=== PATIENT | male | born 1945 | race Caucasian/White ===

== ENCOUNTER 2021-07-30 17:50 | Inpatient (IN) | payer OTHER, BC ==
[2021-07-30 18:32] VITALS: BMI 25.7
[2021-07-30] MEDS ORDERED: SODIUM CHLORIDE 2,041 ML IV ONE (18:37)
[2021-07-30] MEDS ORDERED: LACTATED RINGERS SOLUTION 1000 ML INFUS.BAG IV ONE (19:36)
[2021-07-30 19:49] LABS: INR 1.24 (0.83-1.09); PROTHROMBIN TIME (PATIENT) 14.3 SEC (9.7-13.0)
[2021-07-30 19:51] LABS: ACTIVATED PTT 25.3 SECONDS (25.2-36.5)
[2021-07-30 20:02] LABS: ALBUMIN 2.9 g/dl (3.4-5.0); BLOOD UREA NITROGEN 18.1 mg/dL (7-18); CALCIUM 8.5 mg/dL (8.5-10.1)
[2021-07-30 20:04] LABS: VENOUS BASE EXCESS -1.7 mmol/L (-2-2); VENOUS O2 SATURATION 68.3 % (70-80); VENOUS PCO2 36.3 mmHg (38-52); VENOUS PH 7.409 (7.310-7.410)
[2021-07-30 20:06] LABS: CREATININE 1.6 mg/dL (0.55-1.3)
[2021-07-30 20:07] LABS: BILIRUBIN,TOTAL 0.8 mg/dL (0.2-1)
[2021-07-30 20:59] LABS: HEMATOCRIT 30.8 % (35.4-49); HEMOGLOBIN 9.6 GM/dL (11.7-16.9); MCHC 31.3 g/dl (32.0-35.9); MEAN CELL VOLUME 89.5 fl (80-96); MEAN PLT VOLUME 7.8 fl (7.5-11.1); PLATELET COUNT 211 10^3/uL (134-434); RBC 3.44 M/mm3 (4.00-5.60); RDW 14.7 % (11.9-15.9)
[2021-07-30 21:05] LABS: WHITE BLOOD COUNT 33.6 K/mm3 (4.0-10.0)
[2021-07-30 21:59] LABS: ANISOCYTOSIS 0; MACROCYTOSIS 1+; OVALOCYTE 1+
[2021-07-30] MEDS ORDERED: AZITHROMYCIN IVPB 500 MG in DEXTROSE 5%-WATER - 250 ML IVPB ONE (23:07)
[2021-07-30] MEDS ORDERED: CEFTRIAXONE 1,000 MG in DEXTROSE 5%-WATER - 50 ML IVPB ONE (23:07)
[2021-07-30] MEDS ORDERED: AZITHROMYCIN IVPB 500 MG/250 ML BAG IVPB ONE (23:54)
[2021-07-30] MEDS ORDERED: CEFTRIAXONE 1 GM/50 ML BAG ONE (23:54)
[2021-07-31 00:24] LABS: EPI CELLS 1 /uL (0-25.1); HYALINE CASTS 17 /uL (0-3.1); URINE APPEARANCE CLOUDY; URINE BACTERIA >9,000 /uL (0-1359); URINE BILIRUBIN NEGATIVE (NEGATIVE); URINE COLOR DK YELLOW; URINE GLUCOSE (UA) NEGATIVE (NEGATIVE); URINE KETONE TRACE (NEGATIVE); URINE LEUK ESTERASE 3+ (NEGATIVE); URINE NITRITE NEGATIVE (NEGATIVE); URINE PROTEIN TRACE (NEGATIVE); URINE RBC 10 /uL (0-23.9); URINE UROBILINOGEN 0.2 mg/dL (0.2-1.0); URINE WBC 518 /uL (0-25.8)
[2021-07-31] MEDS ORDERED: diphenhydrAMINE HCL 25 MG CAPSULE (FP) PO ONE ×2 (00:52→00:56)
[2021-07-31] MEDS ORDERED: ACETAMINOPHEN 325 MG TABLET (FP) PO PRN (01:01)
[2021-07-31] MEDS ORDERED: RANITIDINE HCL 150 MG/10 ML UNIT-DOSE PO SCH (01:15)
[2021-07-31] MEDS: FAMOTIDINE 20 MG TABLET PO SCH ×3 (03:43→22:51)
[2021-07-31] MEDS: HEPARIN NA (PORCINE) 5,000 UNITS/ML 1ML VIAL SQ SCH ×3 (06:11→22:58)
[2021-07-31 08:21] LABS: HEMATOCRIT 38.1 % (35.4-49); HEMOGLOBIN 12.1 GM/dL (11.7-16.9); MCH 28.1 pg (25.7-33.7); MCHC 31.8 g/dl (32.0-35.9); MEAN CELL VOLUME 88.4 fl (80-96); MEAN PLT VOLUME 8.2 fl (7.5-11.1); PLATELET COUNT 263 10^3/uL (134-434); RBC 4.31 M/mm3 (4.00-5.60); RDW 15.4 % (11.9-15.9); RETICULOCYTES 2.13 % (0.5-1.5)
[2021-07-31 08:31] LABS: WHITE BLOOD COUNT 35.7 K/mm3 (4.0-10.0)
[2021-07-31 08:59] LABS: MAGNESIUM 1.8 mg/dL (1.8-2.4)
[2021-07-31 09:00] LABS: ALBUMIN 2.7 g/dl (3.4-5.0); BLOOD UREA NITROGEN 15.9 mg/dL (7-18); CALCIUM 8.5 mg/dL (8.5-10.1)
[2021-07-31 09:02] LABS: CREATININE 1.4 mg/dL (0.55-1.3)
[2021-07-31 09:04] LABS: PHOSPHOROUS 3.2 mg/dL (2.5-4.9)
[2021-07-31 09:05] LABS: BILIRUBIN,TOTAL 0.5 mg/dL (0.2-1); TOT PROT 5.7 g/dl (6.4-8.2)
[2021-07-31] MEDS ORDERED: ENOXAPARIN NA (PORCINE) 40 MG/0.4 ML DISP.SYRIN SQ SCH (10:00)
[2021-07-31] MEDS ORDERED: cefTRIAXone SODIUM 1 GM VIAL ONE (10:43)
[2021-07-31] MEDS ORDERED: DEXTROSE 5%-WATER - 50 ML IVPB ONE (10:43)
[2021-07-31] MEDS: CEFTRIAXONE 1 GM in DEXTROSE 5%-WATER - 50 ML IVPB SCH (10:50)
[2021-07-31] MEDS: AZITHROMYCIN IVPB 500 MG/250 ML BAG IVPB SCH (10:51)
[2021-07-31 16:46] LABS: HIV INTERPRETATION NEGATIVE (NEGATIVE)
[2021-07-31] MEDS ORDERED: diphenhydrAMINE HCL 25 MG CAPSULE (FP) PO PRN (18:17)
[2021-07-31] MEDS ORDERED: HYDROCORTISONE 0.5% TOPICAL OINTMENT TUBE TP SCH (22:00)
[2021-07-31] MEDS: HYDROCORTISONE 0.5% TOPICAL CREAM 30 GM TUBE TP SCH (22:51)
[2021-07-31] MEDS: MELATONIN 1 MG TABLET PO SCH (22:51)
[2021-08-01] MEDS: HEPARIN NA (PORCINE) 5,000 UNITS/ML 1ML VIAL SQ SCH ×4 (06:24→22:00)
[2021-08-01 07:38] LABS: HEMATOCRIT 38.8 % (35.4-49); HEMOGLOBIN 12.7 GM/dL (11.7-16.9); MCH 28.7 pg (25.7-33.7); MCHC 32.8 g/dl (32.0-35.9); MEAN CELL VOLUME 87.4 fl (80-96); MEAN PLT VOLUME 8.2 fl (7.5-11.1); PLATELET COUNT 236 10^3/uL (134-434); RBC 4.44 M/mm3 (4.00-5.60); RDW 15.2 % (11.9-15.9)
[2021-08-01 08:04] LABS: CALCIUM 7.9 mg/dL (8.5-10.1)
[2021-08-01 08:05] LABS: ALBUMIN 2.6 g/dl (3.4-5.0); MAGNESIUM 1.8 mg/dL (1.8-2.4)
[2021-08-01 08:08] LABS: CREATININE 1.4 mg/dL (0.55-1.3)
[2021-08-01 08:09] LABS: BILIRUBIN,TOTAL 0.6 mg/dL (0.2-1); TOT PROT 5.4 g/dl (6.4-8.2)
[2021-08-01 08:54] LABS: WHITE BLOOD COUNT 33.5 K/mm3 (4.0-10.0)
[2021-08-01 09:49] LABS: ANISOCYTOSIS 0; MACROCYTOSIS 0; PLATELET ESTIMATE NORMAL
[2021-08-01] MEDS ORDERED: cefTRIAXone SODIUM 1 GM VIAL ONE (10:14)
[2021-08-01] MEDS ORDERED: DEXTROSE 5%-WATER - 50 ML IVPB ONE (10:14)
[2021-08-01] MEDS: CEFTRIAXONE 1 GM in DEXTROSE 5%-WATER - 50 ML IVPB SCH (10:24)
[2021-08-01] MEDS: AZITHROMYCIN IVPB 500 MG/250 ML BAG IVPB SCH (10:24)
[2021-08-01] MEDS: FAMOTIDINE 20 MG TABLET PO SCH ×2 (10:24→21:45)
[2021-08-01] MEDS: HYDROCORTISONE 0.5% TOPICAL CREAM 30 GM TUBE TP SCH ×2 (10:25→21:45)
[2021-08-01] MEDS: MELATONIN 1 MG TABLET PO SCH (21:45)
[2021-08-02] MEDS: HEPARIN NA (PORCINE) 5,000 UNITS/ML 1ML VIAL SQ SCH ×3 (06:00→21:47)
[2021-08-02 07:20] LABS: HEMATOCRIT 37.4 % (35.4-49); HEMOGLOBIN 12.4 GM/dL (11.7-16.9); MCH 28.9 pg (25.7-33.7); MCHC 33.1 g/dl (32.0-35.9); MEAN CELL VOLUME 87.3 fl (80-96); MEAN PLT VOLUME 8.2 fl (7.5-11.1); PLATELET COUNT 214 10^3/uL (134-434); RBC 4.28 M/mm3 (4.00-5.60); RDW 14.8 % (11.9-15.9)
[2021-08-02 07:35] LABS: URIC ACID 6.9 mg/dL (2.6-7.2); WHITE BLOOD COUNT 33.9 K/mm3 (4.0-10.0)
[2021-08-02] MEDS ORDERED: cefTRIAXone SODIUM 1 GM VIAL ONE (09:54)
[2021-08-02] MEDS ORDERED: DEXTROSE 5%-WATER - 50 ML IVPB ONE (09:54)
[2021-08-02] MEDS: FAMOTIDINE 20 MG TABLET PO SCH ×3 (10:08→22:00)
[2021-08-02] MEDS: CEFTRIAXONE 1 GM in DEXTROSE 5%-WATER - 50 ML IVPB SCH (10:08)
[2021-08-02] MEDS: AZITHROMYCIN IVPB 500 MG/250 ML BAG IVPB SCH (10:09)
[2021-08-02] MEDS: HYDROCORTISONE 0.5% TOPICAL CREAM 30 GM TUBE TP SCH ×2 (10:09→21:49)
[2021-08-02 10:21] LABS: ANISOCYTOSIS 0; HELMET CELLS 0; HOWELL-JOLLY BODIES 0; MACROCYTOSIS 0; OVALOCYTE 0; ROULEAU 0; SICKELED CELLS 0; TARGET CELLS 0; TEAR DROP CELLS 0; TOXIC GRANULATION 0
[2021-08-02 11:13] LABS: ALBUMIN 2.4 g/dl (3.4-5.0)
[2021-08-02 11:14] LABS: BLOOD UREA NITROGEN 18.7 mg/dL (7-18); CALCIUM 8.3 mg/dL (8.5-10.1)
[2021-08-02 11:15] LABS: MAGNESIUM 1.9 mg/dL (1.8-2.4)
[2021-08-02 11:16] LABS: CREATININE 1.5 mg/dL (0.55-1.3)
[2021-08-02 11:17] LABS: BILIRUBIN,TOTAL 0.4 mg/dL (0.2-1)
[2021-08-02] MEDS: MELATONIN 1 MG TABLET PO SCH (21:49)
[2021-08-03] MEDS: HEPARIN NA (PORCINE) 5,000 UNITS/ML 1ML VIAL SQ SCH ×3 (06:20→23:28)
[2021-08-03 07:50] LABS: HEMATOCRIT 36.9 % (35.4-49); HEMOGLOBIN 12.5 GM/dL (11.7-16.9); MCH 29.1 pg (25.7-33.7); MCHC 33.8 g/dl (32.0-35.9); MEAN CELL VOLUME 86.2 fl (80-96); MEAN PLT VOLUME 8.4 fl (7.5-11.1); PLATELET COUNT 216 10^3/uL (134-434); RBC 4.28 M/mm3 (4.00-5.60); RDW 15.1 % (11.9-15.9)
[2021-08-03 07:52] LABS: WHITE BLOOD COUNT 33.6 K/mm3 (4.0-10.0)
[2021-08-03 08:12] LABS: CALCIUM 8.1 mg/dL (8.5-10.1)
[2021-08-03 08:13] LABS: ALBUMIN 2.4 g/dl (3.4-5.0); MAGNESIUM 1.8 mg/dL (1.8-2.4)
[2021-08-03 08:16] LABS: CREATININE 1.4 mg/dL (0.55-1.3)
[2021-08-03 08:17] LABS: BILIRUBIN,TOTAL 0.5 mg/dL (0.2-1); TOT PROT 5.2 g/dl (6.4-8.2)
[2021-08-03 08:47] LABS: ANISOCYTOSIS 0; HELMET CELLS 0; HOWELL-JOLLY BODIES 0; MACROCYTOSIS 0; OVALOCYTE 0; ROULEAU 0; SICKELED CELLS 0; TARGET CELLS 0; TEAR DROP CELLS 0; TOXIC GRANULATION 0
[2021-08-03] MEDS ORDERED: DEXTROSE 5%-WATER - 50 ML IVPB ONE (09:08)
[2021-08-03] MEDS ORDERED: cefTRIAXone SODIUM 1 GM VIAL ONE (09:08)
[2021-08-03] MEDS: CEFTRIAXONE 1 GM in DEXTROSE 5%-WATER - 50 ML IVPB SCH (10:12)
[2021-08-03] MEDS: HYDROCORTISONE 0.5% TOPICAL CREAM 30 GM TUBE TP SCH ×2 (10:12→23:27)
[2021-08-03] MEDS: FAMOTIDINE 20 MG TABLET PO SCH ×2 (10:14→23:28)
[2021-08-03] MEDS: AZITHROMYCIN IVPB 500 MG/250 ML BAG IVPB SCH (10:15)
[2021-08-03] MEDS: MELATONIN 1 MG TABLET PO SCH (23:20)
[2021-08-04] MEDS: HEPARIN NA (PORCINE) 5,000 UNITS/ML 1ML VIAL SQ SCH ×3 (05:54→22:09)
[2021-08-04 07:38] LABS: INR 1.3 (0.83-1.09)
[2021-08-04 07:40] LABS: HEMATOCRIT 37.9 % (35.4-49); HEMOGLOBIN 12.3 GM/dL (11.7-16.9); MCH 28.3 pg (25.7-33.7); MCHC 32.4 g/dl (32.0-35.9); MEAN CELL VOLUME 87.1 fl (80-96); MEAN PLT VOLUME 8.9 fl (7.5-11.1); PLATELET COUNT 214 10^3/uL (134-434); RBC 4.35 M/mm3 (4.00-5.60); RDW 15.3 % (11.9-15.9)
[2021-08-04 08:03] LABS: ALBUMIN 2.4 g/dl (3.4-5.0); BLOOD UREA NITROGEN 19.1 mg/dL (7-18); CALCIUM 8.4 mg/dL (8.5-10.1); MAGNESIUM 1.9 mg/dL (1.8-2.4)
[2021-08-04 08:05] LABS: CREATININE 1.4 mg/dL (0.55-1.3)
[2021-08-04 08:06] LABS: TOT PROT 5.2 g/dl (6.4-8.2)
[2021-08-04 08:07] LABS: BILIRUBIN,TOTAL 0.6 mg/dL (0.2-1)
[2021-08-04 08:26] LABS: WHITE BLOOD COUNT 39.2 K/mm3 (4.0-10.0)
[2021-08-04] MEDS: AZITHROMYCIN IVPB 500 MG/250 ML BAG IVPB SCH (08:50)
[2021-08-04] MEDS ORDERED: DEXTROSE 5%-WATER - 50 ML IVPB ONE (08:57)
[2021-08-04] MEDS ORDERED: cefTRIAXone SODIUM 1 GM VIAL ONE (08:57)
[2021-08-04] MEDS: CEFTRIAXONE 1 GM in DEXTROSE 5%-WATER - 50 ML IVPB SCH (08:58)
[2021-08-04 09:39] LABS: ANISOCYTOSIS 0; HELMET CELLS 0; HOWELL-JOLLY BODIES 0; MACROCYTOSIS 0; OVALOCYTE 0; ROULEAU 0; SICKELED CELLS 0; TARGET CELLS 0; TEAR DROP CELLS 0; TOXIC GRANULATION 0
[2021-08-04] MEDS ORDERED: LIDOCAINE HCL 1%, 10 MG/ML (20ML VIAL) NR ONE ×3 (09:54→10:30)
[2021-08-04] MEDS ORDERED: BUPIVACAINE HCL/PF 0.5% (5MG/ML) 10 ML VIAL IJ ONE ×3 (09:55→10:30)
[2021-08-04] MEDS ORDERED: MIDAZOLAM HCL 2 MG/2 ML SINGLE DOSE VIAL ONE (10:16)
[2021-08-04] MEDS ORDERED: ONDANSETRON 4 MG/2 ML VIAL IVPUSH PRN (11:15)
[2021-08-04] MEDS ORDERED: SODIUM CHLORIDE 1,000 ML IV SCH (11:15)
[2021-08-04] MEDS ORDERED: ACETAMINOPHEN 1000 MG/100 ML BAG IVPB PRN (11:16)
[2021-08-04] MEDS ORDERED: ACETAMINOPHEN INJECTION 100 ML IVPB ONE (11:27)
[2021-08-04] MEDS ORDERED: ACETAMINOPHEN 1000 MG/100 ML BAG IVPB ONE (11:29)
[2021-08-04] MEDS ORDERED: ACETAMINOPHEN 325 MG TABLET (FP) PO PRN (11:48)
[2021-08-04] MEDS: FAMOTIDINE 20 MG TABLET PO SCH (13:04)
[2021-08-04 14:08] LABS: MYCOPLASMA PNEUMONIAE,IG G AB <100 U/mL (0-99); MYCOPLASMA PNEUMONIAE,IGM AB <770 U/mL (0-769)
[2021-08-04 16:08] LABS: ATYPICAL pANCA <1:20 titer (Neg:<1:20); C-ANCA <1:20 titer (Neg:<1:20)
[2021-08-04 18:07] LABS: FREE KAPPA,SERUM 81.8 mg/L (3.3-19.4)
[2021-08-04] MEDS ORDERED: FAMOTIDINE 20 MG TABLET PO SCH (22:00)
[2021-08-04] MEDS: HYDROCORTISONE 0.5% TOPICAL CREAM 30 GM TUBE TP SCH (22:09)
[2021-08-04] MEDS: MELATONIN 1 MG TABLET PO SCH (22:12)
[2021-08-05] MEDS: HEPARIN NA (PORCINE) 5,000 UNITS/ML 1ML VIAL SQ SCH ×3 (06:00→21:40)
[2021-08-05 07:19] LABS: HEMATOCRIT 35.8 % (35.4-49); HEMOGLOBIN 11.3 GM/dL (11.7-16.9); MCH 27.7 pg (25.7-33.7); MCHC 31.6 g/dl (32.0-35.9); MEAN CELL VOLUME 87.7 fl (80-96); MEAN PLT VOLUME 8.7 fl (7.5-11.1); PLATELET COUNT 195 10^3/uL (134-434); RBC 4.08 M/mm3 (4.00-5.60)
[2021-08-05 07:37] LABS: CALCIUM 8.1 mg/dL (8.5-10.1)
[2021-08-05 07:38] LABS: BLOOD UREA NITROGEN 20.7 mg/dL (7-18); MAGNESIUM 1.9 mg/dL (1.8-2.4)
[2021-08-05 07:40] LABS: CREATININE 1.3 mg/dL (0.55-1.3)
[2021-08-05 07:42] LABS: TOT PROT 4.5 g/dl (6.4-8.2)
[2021-08-05 09:45] LABS: ANISOCYTOSIS 1+; MACROCYTOSIS 0
[2021-08-05] MEDS ORDERED: DEXTROSE 5%-WATER - 50 ML IVPB ONE (09:49)
[2021-08-05] MEDS ORDERED: cefTRIAXone SODIUM 1 GM VIAL ONE (09:49)
[2021-08-05] MEDS: FAMOTIDINE 20 MG TABLET PO SCH (09:54)
[2021-08-05] MEDS: HYDROCORTISONE 0.5% TOPICAL CREAM 30 GM TUBE TP SCH (09:55)
[2021-08-05] MEDS ORDERED: CEFTRIAXONE 1 GM in DEXTROSE 5%-WATER - 50 ML IVPB SCH (10:00)
[2021-08-05] MEDS ORDERED: AZITHROMYCIN IVPB 500 MG/250 ML BAG IVPB SCH (10:00)
[2021-08-05 14:54] LABS: URIC ACID 5.9 mg/dL (2.6-7.2)
[2021-08-05] MEDS ORDERED: methylPREDNISolone NA SUCC 40 MG/1 ML VIAL IVPB SCH (15:00)
[2021-08-05] MEDS: ALLOPURINOL 300 MG TABLET (FP) PO SCH (18:32)
[2021-08-05] MEDS: SODIUM CHLORIDE 1,000 ML IV SCH (18:32)
[2021-08-05] MEDS ORDERED: ALPRAZolam 0.25 MG TABLET PO ONE (20:36)
[2021-08-05] MEDS: TRIAMCINOLONE ACET 0.1% CREAM 15 GM TUBE TP SCH (21:42)
[2021-08-05 21:45] LABS: HEMATOCRIT 36.9 % (35.4-49); MCH 28.4 pg (25.7-33.7); MCHC 32.6 g/dl (32.0-35.9); MEAN CELL VOLUME 87.1 fl (80-96); MEAN PLT VOLUME 8.6 fl (7.5-11.1); PLATELET COUNT 196 10^3/uL (134-434); RBC 4.24 M/mm3 (4.00-5.60); RDW 15.2 % (11.9-15.9); WHITE BLOOD COUNT 42.3 K/mm3 (4.0-10.0)
[2021-08-05] MEDS: MELATONIN 1 MG TABLET PO SCH (21:52)
[2021-08-05] MEDS ORDERED: TRIAMCINOLONE ACET 0.1% 60 ML LOTION TP SCH (22:00)
[2021-08-05 22:06] LABS: CALCIUM 8.4 mg/dL (8.5-10.1); MAGNESIUM 2.1 mg/dL (1.8-2.4)
[2021-08-05 22:09] LABS: URIC ACID 7.1 mg/dL (2.6-7.2)
[2021-08-05 22:10] LABS: PHOSPHOROUS 4.8 mg/dL (2.5-4.9)
[2021-08-06] MEDS: HEPARIN NA (PORCINE) 5,000 UNITS/ML 1ML VIAL SQ SCH ×3 (07:24→21:16)
[2021-08-06 07:33] LABS: CALCIUM 8.3 mg/dL (8.5-10.1)
[2021-08-06 07:34] LABS: ALBUMIN 2.2 g/dl (3.4-5.0); BLOOD UREA NITROGEN 25.9 mg/dL (7-18); MAGNESIUM 2.3 mg/dL (1.8-2.4)
[2021-08-06 07:36] LABS: CREATININE 1.3 mg/dL (0.55-1.3); URIC ACID 6.3 mg/dL (2.6-7.2)
[2021-08-06 07:38] LABS: BILIRUBIN,TOTAL 0.4 mg/dL (0.2-1); TOT PROT 5.4 g/dl (6.4-8.2)
[2021-08-06 07:41] LABS: HEMOGLOBIN 12.1 GM/dL (11.7-16.9); MCH 28.2 pg (25.7-33.7); MCHC 31.7 g/dl (32.0-35.9); PLATELET COUNT 225 10^3/uL (134-434); RBC 4.27 M/mm3 (4.00-5.60); RDW 15.3 % (11.9-15.9)
[2021-08-06 07:56] LABS: WHITE BLOOD COUNT 63.8 K/mm3 (4.0-10.0)
[2021-08-06] MEDS: methylPREDNISolone NA SUCC 40 MG/1 ML VIAL IVPB SCH ×2 (10:53→21:17)
[2021-08-06] MEDS: TRIAMCINOLONE ACET 0.1% CREAM 15 GM TUBE TP SCH ×2 (10:53→21:19)
[2021-08-06] MEDS: FAMOTIDINE 20 MG TABLET PO SCH (10:53)
[2021-08-06] MEDS: ALLOPURINOL 300 MG TABLET (FP) PO SCH (10:55)
[2021-08-06] MEDS: SODIUM CHLORIDE 1,000 ML IV SCH ×2 (12:08→16:09)
[2021-08-06 13:19] LABS: ANISOCYTOSIS 0; MACROCYTOSIS 0
[2021-08-06 18:17] VITALS: PULSE 83
[2021-08-06] MEDS ORDERED: ALPRAZolam 0.25 MG TABLET PO ONE (19:43)
[2021-08-06 20:30] LABS: HEMATOCRIT 36.2 % (35.4-49); HEMOGLOBIN 11.4 GM/dL (11.7-16.9); MCH 28.1 pg (25.7-33.7); MCHC 31.6 g/dl (32.0-35.9); MEAN CELL VOLUME 88.9 fl (80-96); MEAN PLT VOLUME 8.9 fl (7.5-11.1); PLATELET COUNT 259 10^3/uL (134-434); RBC 4.07 M/mm3 (4.00-5.60); RDW 15.9 % (11.9-15.9)
[2021-08-06 20:39] LABS: WHITE BLOOD COUNT 77.6 K/mm3 (4.0-10.0)
[2021-08-06 20:44] LABS: CALCIUM 8.8 mg/dL (8.5-10.1)
[2021-08-06 20:48] LABS: MAGNESIUM 2.5 mg/dL (1.8-2.4); PHOSPHOROUS 4.9 mg/dL (2.5-4.9)
[2021-08-06 21:44] VITALS: BP 123/68; TEMP 99.5
[2021-08-06] MEDS: MELATONIN 1 MG TABLET PO SCH (21:50)
[2021-08-07] MEDS ORDERED: MULTIVITAMINS (DAILY MVI) TABLET (FP) PO SCH (10:00)
[2021-08-10 15:07] LABS: COXSACKIE A16 IGM Negative titer (Neg:<1:10); COXSACKIE A24 IGM Negative titer (Neg:<1:10); COXSACKIE A7 IGM Negative titer (Neg:<1:10); COXSACKIE A9 IGM Negative titer (Neg:<1:10)
== END 2021-08-06 22:31 | disposition short-term general hospital (02) | DRG 823 ==
LOC: JER 17:50 → JERBED 23:20 → J4W 07-31 02:18
PROVIDERS: ADMIT Hospitalist; ATTEND Nurse Practitioner Acute Care
PROC: 0JBC0ZX Excision of Pelvic Region Subcutaneous Tissue and Fascia, Open Approach, Diagnostic (ICD-10-PCS; 2021-08-04)
PROC: 07BH0ZZ Excision of Right Inguinal Lymphatic, Open Approach (ICD-10-PCS; principal; 2021-08-04 09:40)
DX: C83.00 Small cell B-cell lymphoma, unspecified site (principal); J18.9 Pneumonia, unspecified organism; J96.01 Acute respiratory failure with hypoxia; J90 Pleural effusion, not elsewhere classified; N17.9 Acute kidney failure, unspecified; N39.0 Urinary tract infection, site not specified; D64.9 Anemia, unspecified; B96.20 Unspecified Escherichia coli [E. coli] as the cause of diseases classified elsewhere; L29.9 Pruritus, unspecified; R59.0 Localized enlarged lymph nodes; R59.9 Enlarged lymph nodes, unspecified; R74.01 Elevation of levels of liver transaminase levels; H91.8X9 Other specified hearing loss, unspecified ear; L28.2 Other prurigo; R21 Rash and other nonspecific skin eruption; T50.905A Adverse effect of unspecified drugs, medicaments and biological substances, initial encounter; N20.0 Calculus of kidney; N28.9 Disorder of kidney and ureter, unspecified; K80.20 Calculus of gallbladder without cholecystitis without obstruction; I25.10 Atherosclerotic heart disease of native coronary artery without angina pectoris; Z95.5 Presence of coronary angioplasty implant and graft; Z85.528 Personal history of other malignant neoplasm of kidney; Z90.5 Acquired absence of kidney
CPT/HCPCS: 36415; 71045-TC-FY; 71250-TC; 80053; 81003; 82310; 82550; 82553; 82784; 82803; 83520; 83540; 83550; 83605; 83615; 83735; 83883; 84100; 84155; 84165; 84484; 84550; 85025; 85027; 85045; 85610; 85651; 85730; 86140; 86256; 86308; 86631; 86632; 86658; 86663; 86664; 86682; 86738; 86780; 86850; 86900; 86901; 87040; 87086; 87186; 87205; 87389; 87799; 87899; 88300-TC; 88305-TC; 88307-TC; 93005; 93010; 94760; 99285-25; C9803; J1644; U0003; U0005